=== PATIENT | female | born 1965 | race Hispanic/Latino ===

== ENCOUNTER → 2025-02-26 | Outpatient (CLI) | payer OTHER ==
[~2025-02-26] MED LIST: ALBU8.5H8 IH; DULA0.75 SQ; ENALAPRIL PO; GADOTERATE MEGLUMINE 10 MMOL/20 ML VIAL IV ONE; INSU300I SQ; METF-444 PO; MONT-39 PO; PREM625 PO
--- NOTE | 2025-02-27 07:27 | HMCIMG ---
EXAM: MR Venography Head With IV contrast. CLINICAL HISTORY: Pulsatile tinnitus. TECHNIQUE: Magnetic resonance venography images of the head with intravenous contrast. Three-dimensional MIP reformations performed. CONTRAST: 15 ml Clariscan. COMPARISON: None provided. FINDINGS: SUPERIOR SAGITTAL SINUS: Patent. STRAIGHT SINUS: Patent. TRANSVERSE SINUSES: Patent. SIGMOID SINUSES: Patent. INTERNAL JUGULAR VEINS: Unremarkable as visualized. INTERNAL CEREBRAL AND CORTICAL VEINS: Unremarkable as visualized. OTHER FINDINGS: None. IMPRESSION: 1. Unremarkable MRV of the brain. /[place]
--- NOTE | 2025-02-27 07:27 | HMCIMG ---
EXAM: MRA of the Brain with IV Contrast CLINICAL HISTORY: Tinnitus. TECHNIQUE: 3-D time of flight imaging of the intracranial circulation. Maximum intensity projection reconstructed imaging. CONTRAST: 15 ml Clariscan. COMPARISON: None provided. FINDINGS: The anterior and middle cerebral arteries demonstrate a normal flow-related signal. The anterior communicating artery is intact. Bilateral posterior communicating arteries are not identified. The posterior cerebral arteries are intact. The vertebral and basilar arteries are unremarkable. Bilateral intracranial internal carotid arteries demonstrate normal flow-related signals. No aneurysm, arteriovenous lesion, or hemodynamically significant stenosis is identified. IMPRESSION: 1. Negative MRA of the brain. /[place]
== END | disposition home or self-care (01) ==
LOC: RAH 13:18
PROVIDERS: ATTEND Student in an Organized Health Care Education/Training Program
DX: H93.13 Tinnitus, bilateral (principal); H93.A9 Pulsatile tinnitus, unspecified ear
CPT/HCPCS: 70544 ×2; A9575